=== PATIENT | female | born 1965 | race Caucasian/White ===

== ENCOUNTER 2023-10-25 13:21 | Outpatient (OUT) | payer OTHER, SELFPAY ==
--- NOTE | 2023-10-25 13:24 | MM_ITS ---
Patient Name: ANDRES AMAYA MR#: [id number] : 1965 Exam Date: 10/25/2023 Ordering Doctor: DR Ethan Zhang . RADIOLOGY REPORT PROCEDURE: MM TOMOSYNTHESIS SCREENING BI COMPARISON: MG MAMM SCREEN 3D MIKAYLA CAD, 08/08/2022. MG MAMM SCREEN 3D MIKAYLA CAD, 07/12/2021. INDICATIONS: Screening Calculator Name NCI Breast Cancer Risk Assessment Tool 5 Year Breast Cancer Risk 3.70% Lifetime Breast Cancer Risk 18.10% Personal Breast Cancer No Personal Ovarian Cancer No Treatments None Family Cancers Mother with breast cancer at age 50; Sister with thyroid cancer at age 40. LOCATION: [facility] [place] BREAST COMPOSITION: There are scattered areas of fibroglandular density. FINDINGS: DIAGNOSTIC CATEGORY 2--BENIGN FINDING. NO CHANGE FROM COMPARISON. Scattered benign-appearing calcifications are present. Scattered benign-appearing lymph nodes are present. RIGHT BREAST: No significant suspicious finding. Stable calcifications and micro clip marker upper outer quadrant, mid breast. LEFT BREAST: No significant suspicious finding. RECOMMENDATIONS: ROUTINE MAMMOGRAM AND CLINICAL EVALUATION IN 12 MONTHS. PLEASE NOTE: A NORMAL MAMMOGRAM DOES NOT EXCLUDE THE POSSIBILITY OF BREAST CANCER. A CLINICALLY SUSPICIOUS PALPABLE LUMP SHOULD BE BIOPSIED. Dictated by: Milton Dean MD on 10/25/2023 at 14:21 Approved by: Milton Dean MD on 10/25/2023 at 14:22
== END 2023-10-25 13:22 | disposition home or self-care (01) ==
LOC: MAMMO 13:21
PROVIDERS: PCP Family Medicine; Visit Provider Family Medicine
DX: Z12.31 Encounter for screening mammogram for malignant neoplasm of breast (principal); Z80.3 Family history of malignant neoplasm of breast; Z80.8 Family history of malignant neoplasm of other organs or systems
CPT/HCPCS: 77063; 77067

== ENCOUNTER 2023-11-26 20:00 | Emergency (ER) | payer OTHER, SELFPAY ==
[2023-11-26 20:04] VITALS: BP 156/84; PULSE 67; TEMP 36.5; O2SAT 97; BMI 26.9
--- OUTSIDE RECORDS SUMMARY | 2023-11-26 20:09 | XMS_ITS | CCD ---
Author Organization [facility] Care Team Providers Care Casing Mixer Name Role Phone Kathy Miller Unavailable SUAD ., DR LAZO Admitting Unavailable HOY ., DR LAZO Attending Unavailable HOY ., DR LAZO Primary Care Unavailable HOY ., DR LAZO Consulting Unavailable BOOGIE, DR STU Mchugh Consulting Unavailable HOY ., DR LAZO Admitting Unavailable HOY ., DR LAZO Attending Unavailable HOY ., DR LAZO Primary Care Unavailable HOY ., DR LAZO Consulting Unavailable Allergies Allergy Classification Reported Allergen(s) Allergy Type Date of Onset Reaction(s) Facility (2 sources) Penicillin G Drug Allergy she gets a skin issue GI Track Other (1 source) Iodine (And Iodine Containting Drugs) Drug allergy (disorder) 0 [facility] (1 source) Penicillin Drug Allergy 0 [facility] Medications Current Medications Medication Drug Class(es) Dates Sig (Normalized) Sig (Original) Aspirin (2 sources) Platelet Aggregation Inhibitor, Nonsteroidal Anti-inflammatory Drug Aspirin Active glimepiride (2 sources) Sulfonylurea Glimepiride Acti ve irbesartan (2 sources) Angiotensin 2 Receptor Lisa Irbesartan Active levothyroxine sodium 0.05 mg oral tablet (2 sources) l-Thyroxine take 1 tablet by mouth once daily in the morning Levothyroxine Sodium 50 MCG 1 tablet on an empty stomach in the morning Orally Once a day Active take 1 tablet by skye th once daily in the morning Levothyroxine Sodium 50 MCG 1 tablet on an empty stomach in the morning Orally Once a day Active simvastatin 20 mg oral tablet (2 sources) HMG-CoA Reductase Inhibitor take 1 tablet by mouth every twenty-four hours Simvastatin 20 MG 1 tablet in the evening Orally Once a day Active Completed/Discontinued Medications Medication Drug Class(es) Dates Sig (Normalized) Sig (Original) [id number] actuat albuterol 0.09 mg/actuat metered dose inhaler (3 sources) beta2-Adrenergic Agonist Start: 02-26-2023 take 2 puff(s) by inhalation every four hours as needed for wheezing Albuterol Sulfate HFA 108 (90 Base) MCG/ACT 2 puffs Inhalation every 4 hrs prn SOB, wheezing for 15 days Feb, Not-Taking/PRN Start: 04-01-2021 take 2 puff(s) by in halation four times daily as needed Albuterol Sulfate HFA 108 (90 Base) MCG/ACT 2 puffs Inhalation qid prn Mar, Active Start: 04-01-2021 take 2 puff(s) by in halation four times daily as needed Albuterol Sulfate HFA 108 (90 Base) MCG/ACT 2 puffs Inhalation qid prn Mar, Not-Taking/PRN naproxen 500 mg oral tablet (2 sources) Nonsteroidal Anti-inflammatory Drug Start: 01-05-2019 take 1 tablet by mouth every twelve hours at mealtime as needed Naproxen 500 MG 1 tablet with food or milk as needed Orally every 12 hrs for 10 days Jan, Not-Taking/PRN predniSONE 20 mg oral tablet (3 sources) Start: 02-26-2023 predniSONE 20 MG Take 3 tabs daily x 3 days, then take 2 tabs daily x 3 days, then take 1 tab daily x 3 days. Orally Once a day for 9 days Feb, Not-Taking/PRN Start: 04-01-2021 take 1 tablet by skye th every twelve hours predniSONE 20 MG 1 tablet Orally bid for 5 day(s) Mar, Not-Taking/PRN Thumb Spica Thumb Spica (2 sources) Start: 01-05-2019 Thumb Spica Th umb Spica Jan, Not-Taking/PRN Start: 01-05-2019 Thumb Spica Th umb Spica Jan, Not-Taking Problems Active Problems Problem Classification Problem Date Documented Date Episodic/Chronic Asthma (1 source) Moderate asthma; Translations: [Unspecified asthma with (acute) exacerbation] Chronic Influenza (1 source) Influenza due to other identified influenza virus with other respiratory manifestations Episodic Nutritional deficiencies (1 source) Vitamin D deficiency, unspecified; Translations: [VITAMIN D DEFICIENCY UNSPECIFIED] Onset: 08-02-2022 Chronic Other screening for suspected conditions (not mental disorders or infectious disease) (4 sources) Encounter for screening mammogram for malignant neoplasm of breast; Translations: [ENC SCR MAMMO MALIG NEOPLASM BREAST] Onset: 08-08-2022 Episodic Residual codes; unclassified (1 source) Family history of malignant neoplasm of breast; Translations: [FAMILY HX MALIG NEOPLASM OF BREAST] Onset: 08-10-2022 Episodic Residual codes; unclassified (1 source) Family history of malignant neoplasm of other organs or systems; Translations: [FAM HX MALIG NEOPLASM OTH ORGN/SYS] Onset: 08-10-2022 Episodic Past or Other Problems Problem Classification Problem Date Documented Da te Episodic/Chronic Chronic obstructive pulmonary disease and bronchiectasis (1 source) Bronchitis, not specified as acute or chronic; Translations: [Bronchitis J40] Onset: 04-01-2021 Resolved: 04-01-2021 Episodic Immunizations and screening for infectious disease (1 source) Contact with and (suspected) exposure to other viral communicable diseases; Translations: [Contact with and (suspected) exposure to other viral communicable diseases Z20.828] Onset: 04-01-2021 Resolved: 04-01-2021 Episodic Unclassified (1 source) Acute cough R05.1 Results Test Name Value Interpretation Reference Range Facility COVID/FLU/RSV RT-PCRon 06-11 SARS-CoV-2 (COVID-19) RNA LISA+probe Ql (Unsp spec) Negative [employer] Other COVID/FLU/RSV RT-PCR Positive [facility] [employer] Other COVID/FLU/RSV RT-PCR Negative [facility] Other MG MAMM SCREEN 3D MIKAYLA CADon 08-08-2022 MG MAMM SCREEN 3D MIKAYLA CAD Patient: ANDRES RYDER Exam Date: 08/08/2022 : 1965 Gender:F Ordering : DR VIOLET BORJAS . Admission #: [id number] Family : Order #: [id number] CLICK HERE TO VIEW EXAM RADIOLOGY REPORT PROCEDURE: MAMMOGRAM SCREENING 3D BILATERAL CAD COMPARISON: MG MAMM SCREEN 3D MIKAYLA CAD, 07/12/2021. MG MAMM RT DIAG W CAD, 08/10/2020. MAMMO POST BIOPSY RIGHT, 01/22/2020. DIGITIZED_MAMMO, 05/11/2003. INDICATIONS: Screening mammography Calculator Name NCI Breast Cancer Risk Assessment Tool 5 Year Breast Cancer Risk 3.60% Lifetime Breast Cancer Risk 18.50% Personal Breast Cancer No Personal Ovarian Cancer No Treatments None Family Cancers Mother with breast cancer at age 50; Sister with thyroid cancer at age 40. LOCATION: [facility] BREAST COMPOSITION: Scattered areas fibroglandular density. FINDINGS: DIAGNOSTIC CATEGORY 2--BENIGN FINDING: RIGHT BREAST: No significant suspicious finding. Stable, previously biopsied small nodule within upper-outer quadrant. No significant change has occurred. LEFT BREAST: No significant suspicious finding. No significant change has occurred. RECOMMENDATIONS: ROUTINE MAMMOGRAM AND CLINICAL EVALUATION IN 12 MONTHS. PLEASE NOTE: A NORMAL MAMMOGRAM DOES NOT EXCLUDE THE POSSIBILITY OF BREAST CANCER. A CLINICALLY SUSPICIOUS PALPABLE LUMP SHOULD BE BIOPSIED. Dictated by: Stu Vasquez M.D. on 08/09/2022 at 17:34 Approved by: Stu Vasquez M.D. on 08/09/2022 at 17:36 Normal [facility] INSULINon 07-31-2022 Insulin 9.6 uIU/mL Normal 2.6-24.9 [facility] Comment on above: Performed By: #### I NSULIN #### [facility] [address] [place] [address] Dr. Nate Chou CBC AUTO DIFFon 07-29-2022 BASO # 0.1 103/ul Normal 0.0-0.1 [facility] Comment on above: Performed By: #### O BSCRN #### [facility] [address] [address] [address] Nate Chou Basophils/100 WBC (Bld) 0.9 % Normal 0.2-2.0 [facility] Comment on above: Performed By: #### O BSCRN #### [facility] [address] [address] [address] Nate Chou EO # 0.3 103/ul Normal 0.0-0.7 [facility] Comment on above: Performed By: #### O BSCRN #### [facility] [address] [place] [address] Dr. Nate Chou Eosinophils/100 WBC (Bld) 3.8 % Normal 0.9-7.0 [facility] Comment on above: Performed By: #### O BSCRN #### [facility] [address] [place] [address] Dr. Nate Chou Erythrocyte distribution width (RBC) [Ratio] 12.4 % Normal 11.0-15.0 [facility] Comment on above: Performed By: #### O BSCRN #### [facility] [address] [place] [address] Dr. Nate Chou Hematocrit (Bld) [Volume fraction] 39.6 % Normal 36.0-48.0 [facility] Comment on above: Performed By: #### O BSCRN #### [facility] [address] [place] [address] Dr. Nate Chou Hemoglobin (Bld) [Mass/Vol] 13.5 g/dL Normal 12.0-16.0 [facility] Comment on above: Performed By: #### O BSCRN #### [facility] [address] [place] [address] Dr. Nate Chou IG # 0.01 10e3/ul Normal 0.00-0.03 [facility] Comment on above: Performed By: #### O BSCRN #### [facility] [address] [place] [address] Dr. Nate Chou IG % 0.2 % Normal 0.0-0.5 [facility] Comment on above: Performed By: #### O BSCRN #### [facility] [address] [place] [address] Dr. Nate Chou LYMPH # 2.4 103/ul Normal 1.2-3.8 [facility] Comment on above: Performed By: #### O BSCRN #### [facility] [address] [place] [address] Dr. Nate Chou Lymphocytes/100 WBC (Bld) 37.5 % Normal 20.5-60.0 [facility] Comment on above: Performed By: #### O BSCRN #### [facility] [address] [place] [address] Dr. Nate Chou MANUAL DIFF REQ NO Normal [facility] Comment on above: Performed By: #### O BSCRN #### [facility] [address] [place] [address] Dr. Nate Chou MCH (RBC) [Entitic mass] 29.2 pg Normal 26.7-34.0 [facility] Comment on above: Performed By: #### O BSCRN #### [facility] [address] [place] [address] Dr. Nate Chou MCHC (RBC) [Mass/Vol] 34.1 g/dL Normal 29.9-35.2 [facility] Comment on above: Performed By: #### O BSCRN #### [facility] [address] [place] [address] Dr. Nate Chou MCV (RBC) [Entitic vol] 85.5 fL Normal 81.0-99.0 [facility] Comment on above: Performed By: #### O BSCRN #### [facility] [address] [place] [address] Dr. Nate Chou MONO # 0.5 103/ul Normal 0.3-0.8 [facility] Comment on above: Performed By: #### O BSCRN #### [facility] [address] [place] [address] Dr. Nate Chou Monocytes/100 WBC (Bld) 6.9 % Normal 1.7-12.0 [facility] Comment on above: Performed By: #### O BSCRN #### [facility] [address] [place] [address] Dr. Nate Chou NEUT # 3.3 103/ul Normal 1.4-6.5 [facility] Comment on above: Performed By: #### O BSCRN #### [facility] [address] [place] [address] Dr. Nate Chou Neutrophils/100 WBC (Bld) 50.7 % Normal 43.0-75.0 [facility] Comment on above: Performed By: #### O BSCRN #### [facility] [address] [place] [address] Dr. Nate Chou Platelet mean volume (Bld) [Entitic vol] 10.1 fL Normal 9.5-13.5 [facility] Comment on above: Performed By: #### O BSCRN #### [facility] [address] [address] [address] Nate Chou PLT 255 103/ul Normal 150-450 [facility] Comment on above: Performed By: #### O BSCRN #### [facility] [address] [place] [address] Dr. Nate Chou RBC 4.63 106/ul Normal 4.20-5.40 [facility] Comment on above: Performed By: #### O BSCRN #### [facility] [address] [place] [address] Dr. Nate Chou WBC 6.5 103/ul Normal 4.0-11.0 [facility] Comment on above: Performed By: #### O BSCRN #### [facility] [address] [place] [address] Dr. Nate Chou FREE THYROXINE INDEX T7on FTI 3.89 Normal 1.30-4.50 [facility] Comment on above: Performed By: #### T SH, CMP, LIPID, T7 #### [facility] [address] [place] [address] Dr. Nate Chou T3U 35.0 % Normal 30.0-39.0 [facility] Comment on above: Performed By: #### T SH, CMP, LIPID, T7 #### [facility] [address] [place] [address] Dr. Nate Chou T4 [Mass/Vol] 11.10 ug/dL Normal 4.80-13.90 [facility] Comment on above: Performed By: #### T SH, CMP, LIPID, T7 #### [facility] [address] [place] [address] Dr. Nate Chou GLYCOHEMOGLOBIN A1Con 2022 ADA RECOMMENDATION SEE BELOW Normal [facility] Comment on above: Result Comment: ADA RECOMMENDED LIMIT 4.0 - 6.0 ADA THERAPEUTIC TARGET < 7.0 ACTION SUGGESTED > 7.0 Performed By: #### A 1C #### [facility] [address] [address] [address] Nate Chou Glucose [Mass/Vol] 120 mg/dL Normal [facility] Comment on above: Performed By: #### A 1C #### [facility] [address] [address] [address] Nate Chou HbA1c (Bld) [Mass fraction] 5.8 % Normal 4.5-6.2 [facility] Comment on above: Performed By: #### A 1C #### [facility] [address] [address] [address] Nate Chou IRONon 07-29-2022 Iron [Mass/Vol] 69.0 ug/dL Normal 50.0-170.0 [facility] Comment on above: Performed By: #### I DARIANA REES #### [facility] [address] [address] [address] Nate Chou LIPID PROFILEon 07-29-2022 CHOL-HDL RATIO NORM SEE BELOW Normal [facility] Comment on above: Result Comment: 3.3 - 4.4 LOW RISK 4.4 - 7.1 AVERAGE RISK 7.1 - 11.0 MODERATE RISK >11.0 HIGH RISK Performed By: #### T SH, CMP, LIPID, T7 #### [facility] [address] [address] [address] Nate Chou Cholesterol [Mass/Vol] 150 mg/dL Normal <=200 [facility] Comment on above: Performed By: #### T SH, CMP, LIPID, T7 #### [facility] [address] [address] [address] Nate Chou Cholesterol in HDL [Mass/Vol] 73 mg/dL Critically high 40-60 [facility] Comment on above: Performed By: #### T SH, CMP, LIPID, T7 #### [facility] [address] [address] [address] Nate Chou Cholesterol in LDL [Mass/Vol] 65.2 mg/dL Normal [facility] Comment on above: Performed By: #### T SH, CMP, LIPID, T7 #### [facility] [address] [address] [address] Nate Chou Cholesterol.total/Ch olesterol in HDL [Mass ratio] 2.1 {ratio} Normal [facility] Comment on above: Performed By: #### T SH, CMP, LIPID, T7 #### [facility] [address] [address] [address] Nate Chou HDL NORMAL > or = 60 mg/dl - LOW CARDIOVASCULAR RISK <40 mg/dl - HIGH CARDIOVASCULAR RISK Normal [facility] Comment on above: Performed By: #### T SH, CMP, LIPID, T7 #### [facility] [address] [address] [address] Nate Chou LDL CALC NORMAL SEE BELOW Normal [facility] Comment on above: Result Comment: <100 mg/dl OPTIMAL 100 - 129 mg/dl NEAR OR ABOVE OPTIMAL 130 - 159 mg/dl BORDERLINE HIGH 160 - 189 mg/dl HIGH >190 mg/dl VERY HIGH Performed By: #### T SH, CMP, LIPID, T7 #### [facility] [address] [address] [address] Nate Chou Triglyceride [Mass/Vol] 59 mg/dL Normal <=150 [facility] Comment on above: Performed By: #### T SH, CMP, LIPID, T7 #### [facility] [address] [address] [address] Nate Chou VLDL CALC 11.8 mg/dL Normal [facility] Comment on above: Performed By: #### T SH, CMP, LIPID, T7 #### [facility] [address] [address] [address] Nate Chou OCC BLD IMMUNO SCREENon 07-06 OCCULT BLOOD Negative Normal NEGATIVE [facility] Comment on above: Performed By: #### O BSCRN #### [facility] [address] [address] [address] Nate Chou PROF 14(COMP METB)on 023 Albumin [Mass/Vol] 3.9 g/dL Normal 3.4-5.0 [facility] Comment on above: Performed By: #### T SH, CMP, LIPID, T7 #### [facility] [address] [address] [address] Nate Chou Albumin/Globulin [Mass ratio] 1.0 {ratio} Normal [facility] Comment on above: Performed By: #### T SH, CMP, LIPID, T7 #### [facility] [address] [address] [address] Nate Chou ALP [Catalytic activity/Vol] 93 U/L Normal 46-116 [facility] Comment on above: Performed By: #### T SH, CMP, LIPID, T7 #### [facility] [address] [place] [address] Dr. Nate Chou ALT [Catalytic activity/Vol] 25 U/L Normal 14-59 [facility] Comment on above: Performed By: #### T SH, CMP, LIPID, T7 #### [facility] [address] [address] [address] Nate Chou Anion gap [Moles/Vol] 12.2 mmol/L Normal [facility] Comment on above: Performed By: #### T SH, CMP, LIPID, T7 #### [facility] [address] [place] [address] Dr. Nate Chou AST [Catalytic activity/Vol] 19 U/L Normal 15-37 [facility] Comment on above: Performed By: #### T SH, CMP, LIPID, T7 #### [facility] [address] [address] [address] Nate Chou Bilirubin [Mass/Vol] 0.5 mg/dL Normal 0.2-1.0 [facility] Comment on above: Performed By: #### T SH, CMP, LIPID, T7 #### [facility] [address] [address] [address] Nate Chou Calcium [Mass/Vol] 9.2 mg/dL Normal 8.5-10.1 [facility] Comment on above: Performed By: #### T SH, CMP, LIPID, T7 #### [facility] [address] [address] [address] Nate Chou Chloride [Moles/Vol] 106 mmol/L Normal 98-107 [facility] Comment on above: Performed By: #### T SH, CMP, LIPID, T7 #### [facility] [address] [address] [address] Nate Chou CO2 [Moles/Vol] 28.0 mmol/L Normal 21.0-32.0 [facility] Comment on above: Performed By: #### T SH, CMP, LIPID, T7 #### [facility] [address] [place] [address] Dr. Nate Chou Creatinine [Mass/Vol] 0.72 mg/dL Normal 0.55-1.02 [facility] Comment on above: Performed By: #### T SH, CMP, LIPID, T7 #### [facility] [address] [place] [address] Dr. Nate Chou EGFR-AF CITIZ[place] >60 Normal >=60 [facility] Comment on above: Performed By: #### T SH, CMP, LIPID, T7 #### [facility] [address] [place] [address] Dr. Nate Chou EGFR-NON AF CITIZEN [place] >60 Normal >=60 [facility] Comment on above: Performed By: #### T SH, CMP, LIPID, T7 #### [facility] [address] [address] [address] Nate Chou Globulin (S) [Mass/Vol] 3.9 g/dL Normal [facility] Comment on above: Performed By: #### T SH, CMP, LIPID, T7 #### [facility] [address] [place] [address] Dr. Nate Chou Glucose [Mass/Vol] 110 mg/dL Critically high 74-106 [facility] Comment on above: Performed By: #### T SH, CMP, LIPID, T7 #### [facility] [address] [place] [address] Dr. Nate Chou Potassium [Moles/Vol] 4.2 mmol/L Normal 3.5-5.1 [facility] Comment on above: Performed By: #### T SH, CMP, LIPID, T7 #### [facility] [address] [address] [address] Nate Chou Protein [Mass/Vol] 7.8 g/dL Normal 6.4-8.2 [facility] Comment on above: Performed By: #### T SH, CMP, LIPID, T7 #### [facility] [address] [address] [address] Nate Chou Sodium [Moles/Vol] 142 mmol/L Normal 136-145 [facility] Comment on above: Performed By: #### T SH, CMP, LIPID, T7 #### [facility] [address] [address] [address] Nate Chou Urea nitrogen [Mass/Vol] 14.0 mg/dL Normal 7.0-18.0 [facility] Comment on above: Performed By: #### T SH, CMP, LIPID, T7 #### [facility] [address] [address] [address] Nate Chou Urea nitrogen/Creatinine [Mass ratio] 19.4 mg/mg Normal [facility] Comment on above: Performed By: #### T SH, CMP, LIPID, T7 #### [facility] [address] [address] [address] Nate Chou TSHon 07-29-2022 TSH 0.031 uIU/mL Critically low 0.358-3.740 [facility] Comment on above: Performed By: #### T SH, CMP, LIPID, T7 #### [facility] [address] [address] [address] Nate Chou VITAMIN D 25 OHon 07-29-2022 VIT D 25-OH 35.5 ng/mL Normal [facility] Comment on above: Performed By: #### I NEGRITA, VITAD #### [facility] [address] [place] [address] Dr. Nate Chou VIT D RANGES SEE BELOW Normal [facility] Comment on above: Result Comment: <20 ng/mL Vit D deficient 20 - <30 ng/mL Vit D insufficient 30 - 100 ng/mL Vit D sufficient >100 ng/mL Potential Toxicity Performed By: #### I NEGRITA VITAD #### [facility] [address] [place] [address] Dr. Nate CHURCHILL Quick Testingon 2020 Result Negative [facility] Other Vital Signs Date Time Vital Sign Value Performing Clinician Facility 06-11-2023 09:15-0500 Body height 162.56 cm Kathy Angela Other [facility] Other 06-11-2023 09:15-0500 Body mass index (BMI) [Ratio] 27.5 kg/m2 Kathy Angela Other [facility] Other 06-11-2023 09:15-0500 Body temperature 101.3 [degF] Kathy Garciamond Other [facility] Other 06-11-2023 09:15-0500 Body weight 72.67 kg Kathy Garciamond Other [facility] Other 06-11-2023 09:15-0500 Respiratory rate 18 /min Kathy Garciamond Other [facility] Other 06-11-2023 09:15-0500 SaO2% (BldA) [Mass fraction] 98 % Kathy Garciamond Other [facility] Other 04-01-2021 18:45-0400 Body height 162.56 cm Kathy Garciamond Other [facility] Other 04-01-2021 18:45-0400 Body mass index (BMI) [Ratio] 29.18 kg/m2 Kathy Angela Other [facility] Other 04-01-2021 18:45-0400 Body temperature 97.3 [degF] Kathy Miller Other [facility] Other 04-01-2021 18:45-0400 Body weight 77.11 kg Kathy Miller Other [facility] Other 04-01-2021 18:45-0400 Respiratory rate 18 /min Kathy Miller Other [facility] Other 04-01-2021 18:45-0400 SaO2% (BldA) [Mass fraction] 97 % Kathy Miller Other [facility] Other Encounters Encounter Date Encounter Type Care Provider Facility Start: 06-11-2023 End: 06-11-2023 ambulatory Kathy Garciamond Other [facility] Other Start: 06-11-2023 Office outpatient vi sit 15 minutes Kathy Miller [facility] Start: 08-08-2022 End: 08-09-[address] VIOLET BORJAS . Facility:[facility] Start: 08-02-2022 Encounter for genera l adult medical examination without abnormal findings DR VIOLET BORJAS . [facility] Start: 07-29-2022 End: 07-30-[address] VIOLET BORJAS . Facility:[facility] Start: 07-29-2022 End: 07-30-2022 Encounter for general adult medical examination without abnormal findings DR VIOLET BORJAS . Facility:[facility] Start: 04-01-2021 Office outpatient vi sit 15 minutes Kathy Miller [facility] Payers Date Payer Category Payer Unknown [id number] 1965 Unknown [id number] 1961 Unknown [id number] Social History Date Type Detail Facility Unknown if ever smoked [facility] Other Sex Assigned At Sex Assigned At Bir [facility] Other Evaluation note 06-11-2023 Note Date & Type Note Facility 06-11-2023 Evaluation note Encounter Date Diagnosis Assessment Notes Jun, Acute cough (ICD-10 - R05.1) Jun, Influenza A (ICD-10 - J10.1) Influenza: adult home care material was printed Jun, Other Discharge Instructions for COVID-19 (Suspected or Confirmed ) material was printed Fluids, get plenty of rest. Take Tylenol or Motrin as needed for aches pains or fevers. Continue home medications as prescribed. . Follow-up with your family physician if no improvement in 4-5 days GI Track Other Evaluation note 04-01-2021 Note Date & Type Note Facility 04-01-2021 Evaluation note Encounter Date Diagnosis Assessment Notes Mar, Contact with and (suspected) exposure to other viral communicable diseases (ICD-10 - Z20.828) Mar, Bronchitis (ICD-10 - J40) Drink plenty fluids, get plenty of rest. Take the prednisone as prescribed until gone. Use the albuterol inhaler as prescribed as needed for cough or shortness of breath. Follow-up with your family physician if no improvement in 2 to 3 days Mar, Other Additional time spent conducting pre-visit phone call, screening for symptoms, instructions on social distancing, application and removal of PPE, and cleaning of examination room, equipment and supplies was preformed. Patient education given for testing methodology and results. Patient care instructions given in writting by [facility] document. GI Track Other History general Narrative - Reported Note Date & Type Note Facility History general Narrative - Reported Type Medical History diabetic Medical History HTN Surgical History C section Surgical History hysterectomy Hospitalization History see above GI Track Other Summary Purpose Family History No Family History Records Found Advance Directives No Advanced Directives Records Found Additional Source Comments REASON FOR VISIT (unrecogniz ed section and content) #23 BLACK HONDA COUGH, CONGE STION, SORE THROAT, SOBCOUGH, HEADACHE, SORE THROAT INFORMATION SOURCE (unrecogn ized section and content) DATE CREATED AUTHOR 08/10/[address] [facility] FOR RECORDS PERTAINING TO PATIENTS WHO ARE OR HAVE BEEN ENROLLED IN A CHEMICAL DEPENDENCY/SUBSTANCEABUSE PROGRAM, SOME INFORMATION MAY BE OMITTED. This clinical summary was aggregated from multiple sources. Caution should be exercised in using it in the provision of clinical care. This summary normalizes information from multiple sources, and as a consequence, information in this document may materially change the coding, format and clinical context of patient data. In addition, data may be omitted in some cases. CLINICAL DECISIONS SHOULD BE BASED ON THE PRIMARY CLINICAL RECORDS. [employer] [facility]. provides no warranty or guarantee of the accuracy or completeness of information in this document.
--- NOTE | 2023-11-26 20:16 | PC.NURSE ---
Patient states that she took her hearing aid out and the rubber piece that goes over the speaker stayed in. did attempt to remove but was unsuccessful.
--- NOTE | 2023-11-26 20:17 | ED.SKABFB1 ---
HPI - Skin/Abscess/Foreign Bdy General Chief complaint: Skin/Abscess/Foreign Body Stated complaint: EAR Time Seen by Provider: 11/26/23 20:07 Source: patient Mode of arrival: walk-in History of Present Illness HPI narrative: 58 year old female presents to the ED for a foreign body in her right ear canal. States the rubber piece of her hearing aid is stuck in her ear. She removed her hearing aides this evening. She attempted to remove the FB at home with tweezers. Denies fever, chills, bleeding, drainage. Denies pain. Review of Systems ROS Constitutional Denies: fever or chills Ears, nose, mouth, and throat Reports: other (FB right ear canal.); Denies: ear discharge Cardiovascular Denies: chest pain Respiratory Denies: shortness of breath Musculoskeletal Denies: neck pain Neurological Denies: headache or dizziness Exam Constitutional Vital Signs, click to edit/add: Last Vital Signs Temp 97.7 F 11/26/23 20:04 Pulse 67 11/26/23 20:04 Resp 16 11/26/23 20:04 BP 156/84 H 11/26/23 20:04 Pulse Ox 97 11/26/23 20:04 O2 Del Method Room Air 11/26/23 20:04 Common normals: no apparent distress and oriented x3 General appearance: cooperative HENMT Face and sinus: normal facial exam External ear: external ears normal External auditory canal: other ( Conte FB noted in right ear canal.) Tympanic membrane: TM normal on the right and other (Ear re-examined after FB removal. TM remained intact, unremarkable.) Eye Common normals: conjunctivae normal and no scleral icterus Course Vital Signs Vital signs: Vital Signs Temperature 97.7 F 11/26/23 20:04 Pulse Rate 67 11/26/23 20:04 Respiratory Rate 16 11/26/23 20:04 Blood Pressure 156/84 H 11/26/23 20:04 Pulse Oximetry 97 11/26/23 20:04 Oxygen Delivery Method Room Air 11/26/23 20:04 Temperature 97.7 F 11/26/23 20:04 Pulse Rate 67 11/26/23 20:04 Respiratory Rate 16 11/26/23 20:04 Blood Pressure 156/84 H 11/26/23 20:04 Pulse Oximetry 97 11/26/23 20:04 Oxygen Delivery Method Room Air 11/26/23 20:04 MDM - Skin/Abscess/Foreign Bdy MDM Narrative Medical decision making narrative: FB was removed from the right ear canal with alligator forceps. She tolerated it well. Ear was re-examined after removal and was unremarkable. Follow up with pcp as needed for a recheck, further evaluation and treatment. Discharge Plan Discharge Stand Alone Forms: Portal Instructions Chief Complaint: Skin/Abscess/Foreign Body Clinical Impression: Foreign body in right ear Patient Disposition: Home, Self-Care Time of Disposition Decision: 20:16 Condition: Good Mode of Transportation: Private Vehicle Print Language: [place] Zeal[place] Instructions: Ear Foreign Body (ED) Referrals: Ethan Zhang MD [Primary Care Provider] - 1 week Discharge Date/Time: 11/26/23 20:40
== END 2023-11-26 20:40 | disposition home or self-care (01) ==
PROVIDERS: Emergency Provider Emergency Medicine; PCP Family Medicine
DX: T16.1XXA Foreign body in right ear, initial encounter (principal); W44.G1XA Audio device entering into or through a natural orifice, initial encounter
CPT/HCPCS: 69200; 99281